=== PATIENT | female | born 1990 | race Caucasian/White ===

== ENCOUNTER 2017-06-19 19:17 | Emergency (ER) | payer OTHER ==
[~2017-06-19] VITALS: Ht 170.2 cm; Wt 93.0 kg
[2017-06-19 19:23] VITALS: BP 141/68
--- NOTE | 2017-06-19 19:29 | NUR ---
Heath beck in [facility] - 06/19/17 at 1935 by TERRELL PT TAKEN TO BED 11
--- NOTE | 2017-06-19 19:35 | NUR ---
PT TAKEN TO BED 3
--- NOTE | 2017-06-19 19:43 | NUR ---
Sitting on bed. States pain in lower back worse with movement.
--- NOTE | 2017-06-19 19:52 | NUR ---
Dr. Hope evaluating patient.
[2017-06-19] MEDS ORDERED: IBUPROFEN 800 MG TAB PO ONE (19:55)
[2017-06-19] MEDS ORDERED: CYCLOBENZAPRINE 10 MG TAB PO ONE (19:55)
--- NOTE | 2017-06-19 20:38 | NUR ---
Patient discharged with v/s stable. Written and verbal after care instructions given and explained. Patient alert, oriented and verbalized understanding of instructions. Ambulatory with steady gait. All questions addressed prior to discharge. ID band removed. Patient advised to follow up with PMD. Rx of IBU, FLEXERIL given. Patient educated on indication of medication including possible reaction and side effects. Opportunity to ask questions provided and answered.
[2017-06-19 20:39] VITALS: BP 136/70
== END 2017-06-19 20:38 | disposition home or self-care (01) ==
LOC: MED 19:17
DX: S39.012A Strain of muscle, fascia and tendon of lower back, initial encounter (principal); R03.0 Elevated blood-pressure reading, without diagnosis of hypertension; X58.XXXA Exposure to other specified factors, initial encounter; Y93.89 Activity, other specified; Y92.89 Other specified places as the place of occurrence of the external cause; Y99.8 Other external cause status
CPT/HCPCS: 81002; 81025; 99283

== ENCOUNTER 2018-12-03 22:11 | Emergency (ER) | payer MEDICAID, OTHER ==
[~2018-12-03] VITALS: Ht 162.6 cm; Wt 98.9 kg
[2018-12-03 22:16] VITALS: BP 116/71
--- NOTE | 2018-12-03 22:30 | NUR ---
28/ PRESENTED TO ED C/O FEVER, HEADACHE, DIZZINESS SINCE YESTERDAY. 09/21 PAIN. TOOK IBUPROFEN EARLIER PRIOR TO ARRIVING. DENIES PAST MED HX. NO RX. DENIES ALLERGIES. WILL CONTINUE TO MONITOR.
--- NOTE | 2018-12-03 22:40 | NUR ---
Dr. Jay examining patient.
[2018-12-03 23:40] LABS: APPEARANCE,URINE CLEAR (CLEAR); BILIRUBIN,URINE NEGATIVE (NEGATIVE); BLOOD, URINE NEGATIVE (NEGATIVE); COLOR,URINE YELLOW (YELLOW); LEUKOCYTE ESTERASE ,URINE NEGATIVE (NEGATIVE); NITRITE, URINE NEGATIVE (NEGATIVE); UGLUCOSE NEGATIVE (NEGATIVE)
[2018-12-04 00:01] LABS: RBC,URINE 0-5 /HPF (0-5); WBC,URINE 0-5 /HPF (0-5)
--- NOTE | 2018-12-04 00:10 | NUR ---
CURRENT TEMP 98.0 VSS
[2018-12-04 00:15] VITALS: BP 116/71
== END 2018-12-04 00:15 | disposition home or self-care (01) ==
LOC: MED 22:11
DX: R50.9 Fever, unspecified (principal); E11.9 Type 2 diabetes mellitus without complications
CPT/HCPCS: 81001; 81025; 99283